=== PATIENT | male | born 1980 | race Caucasian/White ===

== ENCOUNTER → 2016-08-03 | Outpatient (CLI) | payer BC ==
[2016-08-03 16:36] LABS: HEMOGLOBIN 15.8 gm/dl (14.0-17.5); RED BLOOD COUNT 5.38 M/UL (4.20-5.50); WHITE BLOOD COUNT 7.5 K/UL (4.5-11.0)
[2016-08-03 17:04] LABS: BUN/CREATININE RATIO 14 (0-10)
== END ==
LOC: LAB 16:07
PROVIDERS: Nurse Practitioner
DX: E11.9 Type 2 diabetes mellitus without complications (principal); E78.5 Hyperlipidemia, unspecified
CPT/HCPCS: 80053; 80061; 82043; 82570; 83036; 84436; 84443; 84480; 85025

== ENCOUNTER → 2016-10-05 | Outpatient (CLI) | payer BC ==
[2016-10-05 09:02] LABS: HEMOGLOBIN 15.2 gm/dl (14.0-17.5); RED BLOOD COUNT 5.26 M/UL (4.20-5.50); WHITE BLOOD COUNT 10.1 K/UL (4.5-11.0)
[2016-10-05 09:20] LABS: BUN/CREATININE RATIO 15 (0-10)
== END ==
LOC: LAB 08:14
PROVIDERS: Nurse Practitioner
DX: E11.9 Type 2 diabetes mellitus without complications (principal); R53.83 Other fatigue
CPT/HCPCS: 36415; 80053; 80061; 82043; 83036; 84436; 84443; 84480; 85025

== ENCOUNTER 2016-11-04 22:43 | Emergency (ER) | payer BC ==
[2016-11-05 00:53] LABS: HEMOGLOBIN 14.4 gm/dl (14.0-17.5); RED BLOOD COUNT 4.92 M/UL (4.20-5.50); WHITE BLOOD COUNT 13.2 K/UL (4.5-11.0)
[2016-11-05 01:22] LABS: BUN/CREATININE RATIO 19 (0-10)
== END 2016-11-05 05:15 | disposition home or self-care (01) ==
LOC: ER1 22:43
PROVIDERS: Physician Assistant
DX: E86.0 Dehydration (principal); J02.0 Streptococcal pharyngitis; E11.9 Type 2 diabetes mellitus without complications; Z79.899 Other long term (current) drug therapy; Z79.82 Long term (current) use of aspirin
CPT/HCPCS: 36415; 70450; 71020; 80053; 80307; 81001; 82140; 82550; 82553; 83874; 84443; 84484; 85025; 85379; 87040; 87081; 87086; 87880; 93005; 96372; 96374; 99284; J0561; J2405

== ENCOUNTER 2021-04-25 11:48 | Emergency (ER) | payer BC ==
[~2021-04-25 11:48] MED LIST: ASPIRIN CHEWABL81 MG PO; HUMULIN R100 UNIT/1 INJ; IBUPROFEN800 MG PO; OMEPRAZOLE40 MG PO
[2021-04-25 12:46] LABS: HEMOGLOBIN 15.3 gm/dl (14.0-17.5); RED BLOOD COUNT 5.18 M/UL (4.20-5.50); WHITE BLOOD COUNT 7.3 K/UL (4.5-11.0)
[2021-04-25 13:08] LABS: BUN/CREATININE RATIO 15 (0-10)
[2021-04-25] MEDS ORDERED: PROTONIX 40 MG40 M1 PO (16:11)
== END 2021-04-25 16:20 | disposition home or self-care (01) ==
LOC: ER1 11:48
PROVIDERS: Physician Assistant
DX: K43.9 Ventral hernia without obstruction or gangrene (principal); K21.9 Gastro-esophageal reflux disease without esophagitis; E11.9 Type 2 diabetes mellitus without complications; E78.5 Hyperlipidemia, unspecified; Z79.84 Long term (current) use of oral hypoglycemic drugs
CPT/HCPCS: 80053; 81001; 83690; 85025; 96374; 99284; C9113; J7030; Q9967